=== PATIENT | male | born 1975 | race Caucasian/White ===

== ENCOUNTER 2020-04-28 14:43 | Emergency (ER) | payer OTHER, SELFPAY ==
--- NOTE | ~2020-04-28 | CT_ITS ---
EXAMINATION: CT brain wo con DATE: 04/28/2020 17:03 INDICATION: Headache. TECHNIQUE: Computed tomography (CT) of the head was performed without intravenous contrast. The mA wa s adjusted according to patient size. Iterative reconstruction technique was employed. The dose-lengt h product was 605.33 mGy-cm. COMPARISON: None FINDINGS: There is no intracranial hemorrhage, acute infarction, or abnormal intracranial mass lesion . The ventricles are normal in size. There is mild mucosal thickening in the paranasal sinuses. The o rbits are normal. The mastoid air cells are normal. IMPRESSION: 1. Normal brain. Reviewed, dictated and finalized at location A. [employer] IMPRESSION: 1. Normal brain.
--- NOTE | ~2020-04-28 | XR_ITS ---
XR chest 1V portable DATE: 04/28/2020 17:06 INDICATION: Headaches, neck tension. Hypertension. TECHNIQUE: AP chest COMPARISON: None FINDINGS: Heart size is normal. Is mild aortic tortuosity. No hilar or mediastinal enlargement. No pulmonary infiltrate or consolidation, pleural effusion or pulmonary vascular congestion or pneumo thorax. There is mild pleural thickening along the mid to lower left lateral chest wall. Old healed fracture of the left clavicular shaft. IMPRESSION: No active cardiopulmonary disease Reviewed, dictated and finalized at location A. K [employer]
[2020-04-28 14:44] VITALS: BP 180/113; PULSE 85; RESP 20; TEMP 36.1; O2SAT 99
--- NOTE | 2020-04-28 14:47 | ECG_ITS ---
Measurements Intervals [place] Rate: 82 P: 29 SD: 182 QRS: -56 QRSD: 131 T: 23 QT: 379 QTc: 443 Interpretive Statements SINUS RHYTHM RIGHT BUNDLE BRANCH BLOCK LEFT ANTERIOR FASCICULAR BLOCK ABNORMAL ECG Electronically Signed On 04-28-2020 14:56:12 E [employer] by Bakari Kimball D.O.
[2020-04-28 14:56] LABS: Basophils Percent Auto 0.7 % (0.2-1.2); Eosinophils Absolute Auto 0.1 K/mm3 (0-0.3); Eosinophils Percent Auto 2.4 % (0-4.4); Hematocrit 38.7 % (42.0-52.0); Hemoglobin 12.3 g/dL (14.0-18.0); Immature Granulocyte Absolute 0.02 K/mm3 (0.00-0.031); Immature Granulocyte Percent A 0.3 % (0-0.5); Lymphocytes Absolute Auto 1.65 K/mm3 (0.9-3.2); Lymphocytes Percent Auto 28.8 % (18.3-44.2); Mean Corpuscular HGB Conc 31.8 g/dl (32-36); Mean Corpuscular Hemoglobin 20.2 pg (26-34); Mean Corpuscular Volume 63.5 fl (80-100); Mean Platelet Volume 9.9 fl (7.4-10.4); Monocytes Absolute Auto 0.5 K/mm3 (0.1-0.6); Monocytes Percent Auto 9.3 % (2.6-8.5); Neutrophils Absolute Auto 3.3 K/mm3 (1.3-6.7); Neutrophils Percent Auto 58.5 % (45.5-73.1); Platelet Count Result 235 k/mm3 (150-375); Red Blood Count 6.09 M/mm3 (4.6-6.20); Red Cell Distribution Width 17.8 % (11.5-14.5); White Blood Count 5.7 K/mm3 (4.5-10.0)
[2020-04-28 15:09] LABS: Alanine Aminotransferase 100 U/L (4-50); Albumin Level 4.4 g/dL (3.5-5.1); Alkaline Phosphatase 50 U/L (38-126); Anion Gap 7 mmol/L (8-16); Aspartate Amino Transferase 67 U/L (17-59); Bilirubin,Total 0.5 mg/dL (0.2-1.3); Blood Urea Nitrogen 19 mg/dL (9-20); Calcium 9.4 mg/dL (8.4-10.2); Carbon Dioxide 28 mmol/L (22-30); Chloride 106 mmol/L (98-107); Estimated CRCL calculation 85 ml/min; Estimated Glomerular Filt Rate 60; Glucose 143 mg/dL (75-110); Potassium 3.9 mmol/L (3.4-5.0); Sodium 141 mmol/L (137-145)
--- NOTE | 2020-04-28 17:09 | ED.GENADULT ---
HPI - General Adult General Chief complaint: Recheck/Abnormal Lab/Rx Stated complaint: high blood pressure Time Seen by Provider: 04/28/20 16:38 Source: patient and family Mode of arrival: ambulatory Limitations: no limitations History of Present Illness HPI narrative: Patient is 45 years old white male presents with elevated blood pressure, tension in the neck and not feeling well but 7 days. Patient went to his dentist 1 week ago, blood pressure was elevated and the procedure was delayed. Patient went to his office yesterday and blood pressure found to be elevated and the procedure was delayed. Patient denies any fever, chills, nausea, vomiting, blurred vision, chest pain, shortness of breath, back pain. Patient does not take medicine at home, patient scheduled to see a family physician for the 1st time coming Monday Review of Systems Review of Systems: Narrative: CONSTITUTIONAL: Denies fever, chills, or sweats. EYES: Denies visual changes, redness, or discharge. ENT: Denies rhinorrhea, congestion, sore throat, or otalgia. CARDIOVASCULAR: Denies chest pain, palpitations, or edema. RESPIRATORY: Denies cough or dyspnea. GASTROINTESTINAL: Denies abdominal pain, nausea, vomiting, or diarrhea. GENITOURINARY: Denies dysuria or hematuria. SKIN: Denies rash or itching. MUSCULOSKELETAL: Denies back pain, joint pain, or myalgia. NEUROLOGIC: Denies headache, numbness, or weakness. PSYCHIATRIC: Denies anxiety or depression. Exam Narrative: Exam Narrative: General appearance: Well-developed, well-nourished Skin: Normal color Head: Normocephalic, nontraumatic Eyes: Clear conjunctiva ENT: Oropharynx normal, ears normal, nose normal Neck: Supple, nontender Chest and respiratory: Airway patent, no respiratory distress, no accessory muscle use Heart: Regular rate/rhythm Abdomen: Soft, nontender, no organomegaly, quiet bowel sounds Vascular: Normal peripheral pulses, normal capillary refill. Musculoskeletal: Normal range of motion, nontender back Neurologic: Alert and oriented ?3, [employer]ISTER is normal as tested, no gross motor deficit Course Course Emergency Course: Stable Vital Signs Vital signs: Vital Signs Temperature 36.1 C L 04/28/20 14:44 Pulse Rate 85 04/28/20 14:44 Respiratory Rate 20 04/28/20 14:44 Blood Pressure 180/113 H 04/28/20 14:44 Pulse Oximetry 99 04/28/20 14:44 Temperature 36.1 C L 04/28/20 14:44 Pulse Rate 85 04/28/20 14:44 Respiratory Rate 20 04/28/20 14:44 Blood Pressure 180/113 H 04/28/20 14:44 Pulse Oximetry 99 04/28/20 14:44 Medical Decision Making MDM Narrative Medical decision making narrative: Patient presents with elevated blood pressure, patient denies any chest pain or shortness of breath. Patient never been on any medication for hypertension in the past. Patient denying any dental pain at this time. Labs, CT head, EKG, chest x-ray ordered. Further plan to follow Differential Diagnosis Differential Diagnosis: Essential hypertension versus secondary hypertension is my concern. Vital Signs Vital Signs: Vital Signs Temperature 36.1 C L 04/28/20 14:44 Pulse Rate 85 04/28/20 14:44 Respiratory Rate 20 04/28/20 14:44 Blood Pressure 180/113 H 04/28/20 14:44 Pulse Oximetry 99 04/28/20 14:44 Temperature 36.1 C L 04/28/20 14:44 Pulse Rate 85 04/28/20 14:44 Respiratory Rate 20 04/28/20 14:44 Blood Pressure 180/113 H 04/28/20 14:44 Pulse Oximetry 99 04/28/20 14:44 Lab Data Result diagrams: 04/28/20 14:50 04/28/20 14:50 Labs: Lab Results 04/28/20 04/28/20 Range/Units 14:50 14:50 WBC 5.7 (4.5-10.0) K/mm3 RBC 6.09 (4.6-6.20) M/mm
[2020-04-28] MEDS: LOSARTAN POTASSIUM 50 MG TABLET PO (17:57)
[2020-04-28 18:01] LABS: Add Urine Microscopic? YES; Appearance Urine Clear (Clear); Bacteria Urine Trace /hpf; Bilirubin Urine Negative (Negative); Blood Urine Negative (Negative); Color Urine Yellow (Yellow); Glucose Urine UA Negative (Negative); Ketones Urine Negative (Negative); Leukocyte Esterase Ur Negative LEU/UL (Negative); Mucus Urine Rare /lpf; Nitrate Urine Negative (Negative); Protein Urine 2+ mg/dL (Negative); RBC Urine 0-2 /hpf (0-2); Specific Grav Ur 1.028 (1.001-1.035); WBC Urine 0-3 /hpf
== END 2020-04-28 18:23 | disposition home or self-care (01) ==
PROVIDERS: Emergency Medicine; Emergency Provider Emergency Medicine
DX: I10 Essential (primary) hypertension (principal); I45.2 Bifascicular block
CPT/HCPCS: 36415; 70450; 71045; 80053; 81001; 85025; 93005; 99284; A9270